=== PATIENT | male | born 1990 | race Two or more races ===

== ENCOUNTER 2017-06-22 18:10 | Emergency (ER) | payer OTHER ==
[~2017-06-22] VITALS: Ht 167.6 cm; Wt 78.9 kg
--- NOTE | 2017-06-22 18:22 | NUR ---
PT TO ED ROOM 08. [id number]: HEADA INJURY, WITNESSED SEIZURES, LOC ~ 30 SEC S/P HEAD INJURY. A/A/O. SIDE RAILS UP. HOB ELEVATED. CONNECTED TO MONITOR. AWAITING EVALUATION BY ER PROVIDER.
--- NOTE | 2017-06-22 19:29 | NUR ---
DR. BOLIVAR AT BEDSIDE TALKING TO PT REGARDING CT RESULT. PENDING DISPOSITION.
[2017-06-22 19:40] VITALS: BP 118/68
--- NOTE | 2017-06-22 19:40 | NUR ---
IV removed. Catheter intact and site benign. Pressure and 4x4 applied to site. No bleeding noted. Patient discharged to home in stable condition. Written and verbal after care instructions given. Patient verbalizes understanding of instruction. Pt family members at bedside to take pt home. pt [id number] no acute distress noted, resp even and unlabored. pt ambulatory with steady gait noted.
== END 2017-06-22 19:41 | disposition home or self-care (01) ==
LOC: ER 18:11
DX: S06.0X0A Concussion without loss of consciousness, initial encounter (principal); Z88.0 Allergy status to penicillin; W18.09XA Striking against other object with subsequent fall, initial encounter; Y93.61 Activity, american tackle football; Y92.89 Other specified places as the place of occurrence of the external cause; Y99.8 Other external cause status
CPT/HCPCS: 70450; 99284; A4606; Z7610